=== PATIENT | female | born 1985 | race Hispanic/Latino ===

== ENCOUNTER 2018-03-01 05:22 | Emergency (ER) | payer BC ==
[2018-03-01 05:39] VITALS: BP 118/65; PULSE 76; RESP 18; TEMP 97.8; O2SAT 99
--- NOTE | 2018-03-01 05:44 | ED PDOC ---
HPI: Abdomen Chief Complaint (Provider): abdominal pain with vaginal bleeding. History Per: Patient History/Exam Limitations: no limitations Location Of Pain/Discomfort: Suprapubic Abnormal Vaginal Bleeding: Yes Last Menstral Period: 12/13/17 <Elsie Tejada - Last Filed: 03/01/18 05:49> <Halie Florez - Last Filed: 03/02/18 01:18> Chief Complaint (Nursing): Abdominal Pain Additional Complaint(s): 32 year old female with no PMH here with complaints of severe abdominal pain for past day, with vaginal bleeding. Pain was 10/10 late last night, she took a duexis with improvement of pain, now a 3/10. She reports vaginal bleeding like menses. Currently having bleeding. Nausea yesterday, no vomiting, not currently nauseous. Reports LMP of 12/13/17, last had u/s done 3 days ago at [facility]. She has appt with [facility] this upcoming . No fevers, chest pain, dypnea, vomiting, pedal edema. No PMD. (Elsie Tejada) Supervising Attending Note <Elsie Tejada - Last Filed: 03/01/18 05:49> - Supervising Attending Note The Documented history was done by the: Physician Egg Setter The documented physical exam was done by the: Physician Egg Setter The documented procedures were done by the: Physician Egg Setter - Attestation: I have personally seen and examined this patient.: Yes I have fully participated in the care of the patient.: Yes I have reviewed all pertinent clinical information: Yes <Halie Florez - Last Filed: 03/02/18 01:18> - Notes: Notes:: pt seen by myself. signout to dr balbuena pending workup (Halie Florez) Past Medical History - Medical History PMH: No Chronic Diseases - Surgical History Surgical History: No Surg Hx - Family History Family History: States: No Known Family Hx, Unknown Family Hx - Living Arrangements Living Arrangements: With Family - Social History Current smoker - smoking cessation education provided: No Drugs: Denies <Elsie Tejada - Last Filed: 03/01/18 05:49> <Halie Florez - Last Filed: 03/02/18 01:18> Vital Signs: Last Vital Signs Temp 97.8 F 03/01/18 05:34 Pulse 76 03/01/18 05:34 Resp 18 03/01/18 05:34 BP 118/65 03/01/18 05:34 Pulse Ox 99 03/01/18 10:30 - Allergies Allergies/Adverse Reactions: Allergies Allergy/AdvReac Type Severity Reaction Status Date / Time No Known Allergies Allergy Verified 03/01/18 05:34 Review of Systems Constitutional: Negative for: Fever, Chills, Sweats, Weakness Eyes: Negative for: Pain, Vision Change ENT: Negative for: Ear Discharge, Nose Discharge Cardiovascular: Negative for: Chest Pain, Palpitations, Orthopnea Respiratory: Negative for: Cough, Shortness of Breath, SOB with Exertion, Pleuritic Pain Gastrointestinal: Negative for: Nausea, Vomiting Genitourinary Female: Positive for: Vaginal Bleeding, Pelvic Pain. Negative for : Dysuria, Frequency Skin: Negative for: Rash Neurological: Negative for: Weakness, Numbness Psych: Negative for: Anxiety, Depression <Elsie Tejada - Last Filed: 03/01/18 05:49> Physical Exam - Reviewed Vital Signs Reviewed: Yes - Physical Exam Appears: Positive for: Uncomfortable Head Exam: Positive for: ATRAUMATIC, NORMAL INSPECTION, NORMOCEPHALIC Skin: Positive for: Normal Color, Warm, DRY Eye Exam: Positive for: EOMI, Normal appearance, PERRL ENT: Positive for: Normal ENT Inspection Neck: Positive for: Normal, Painless ROM Cardiovascular/Chest: Positive for: Regular Rate, Rhythm. Negative for: Murmur , Bradycardia, Tachycardia Pelvic Exam: Positive for: Active Bleeding, Blood (pooling in vaginal vault, no POC visualized, no blood clots) Back: Negative for: L CVA Tenderness, R CVA Tenderness Rectal: Positive for: Deferred Extremity: Positive for: Normal ROM. 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 Florez (Elsie Tejada) Medical Decision Making <Elsie Tejada - Last Filed: 03/01/18 05:49> <Halie Florez - Last Filed: 03/02/18 01:18> Medical Decision Making: Patient was seen by myself along with the resident. Patient supposedly 10 weeks , but notes that on last visit no IUP was seen. States that she experienced extreme cramping with some bleeding last night. Initial impression: r/o spontaneous v threatened Initial plan: * US * Labs Scribe Attestation: Documented by Aliya Olvera acting as a scribe for Halie Florez MD. Scribe Attestation: All medical record entries made by the Scribe were at my direction and personally dictated by me. I have reviewed the chart and agree that the record accurately reflects my personal performance of the history, physical exam, medical decision making, and the department course for this patient. I have also personally directed, reviewed, and agree with the discharge instructions and disposition. (Halie Florez) Disposition - Disposition Disposition Time: 06:33 <Elsie Tejada - Last Filed: 03/01/18 05:49> <Halie Florez - Last Filed: 03/02/18 01:18> - Clinical Impression Clinical Impression: Threatened - Disposition Condition: STABLE Additional Instructions: RETURN TO ED IN 48 HOURS FOR REPEAT BETA HCG. TAKE TYLENOL NEEDED FOR PAIN. Instructions: Threatened Miscarriage, Bleeding With Forms: [employer] (Telugu)
[2018-03-01 06:36] LABS: BASO % 0.5 % (0.0-2.0); EOS # 0.1 K/uL (0.0-0.7); EOS % 0.9 % (0.0-4.0); HEMOGLOBIN 12.5 g/dL (12.0-16.0); LYMPH # 1.3 K/uL (1.0-4.3); LYMPH % 14.8 % (20.0-40.0); MEAN CELL VOLUME 90.9 fl (81.0-99.0); MEAN CORPUSCULAR HEMOGLOBIN 31.1 pg (27.0-31.0); MEAN CORPUSCULAR HGB CONC 34.3 g/dL (33.0-37.0); MEAN PLATELET VOLUME 8.8 fl (7.2-11.7); MONO # 0.5 K/uL (0.0-0.8); MONO % 6.3 % (0.0-10.0); NEUT # 6.6 K/uL (1.8-7.0); NEUT % 77.5 % (50.0-75.0); RBC 4.01 Mil/uL (3.80-5.20); RED CELL DISTRIBUTION WIDTH 12.6 % (11.5-14.5); WHITE BLOOD COUNT 8.5 K/uL (4.8-10.8)
[2018-03-01 06:44] LABS: ALB/GLOB RATIO 1.4 (1.0-2.1); ALT/SGPT 29 U/L (9-52); AST/SGOT 16 U/L (14-36); BLOOD UREA NITROGEN 13 mg/dl (7-17); CALCIUM 9.1 mg/dL (8.4-10.2); GFR AFRICAN-AMERICAN > 60; GFR NON-AFRICAN AMERICAN > 60
--- NOTE | 2018-03-01 07:24 | ED PDOC ---
- Laboratory Results Result Diagrams: 03/01/18 06:20 03/01/18 06:20 - ECG O2 Sat by Pulse Oximetry: 99 Medical Decision Making Medical Decision Makin:00 -Patient was endorsed to me by Dr. Florez, pending labs and ultrasound. 10:20 -Patient reevaluated. Abdomen non-tender. Patient states she has an appointment with OB this Thursday. -Findings discussed with patient and advised to come to the ED for a repeat beta in x2 days. 09:18 Abdomen/Pelvis/Transvag Ultrasound FINDINGS: Uterus is anteverted measuring 11.3 x 6.4 x 4.5 cm without defined intrauterine gestation. The endometrial pattern is moderately inhomogeneous which transvaginal endometrial thickness of 8.9 mm. Trace fluid is questioned in the endometrial cavity transvaginally. This is not seen on the trans abdominal images. Initially, fluid was suspected at the endocervical cavity, however, following voiding, this was not identified on transvaginal technique and it may have been evacuated. No fluid collections appreciate throughout the examination and the bilateral ovaries appear unremarkable measuring 4.4 x 3.4 x 2.8 cm in the right and 3.1 x 4.2 x 2.2 cm at the left. No ectopic gestation is clearly demonstrated. This is not exclude potential for ectopic gestation nevertheless. IMPRESSION: 1. No intrauterine gestation is appreciated nor definite ectopic. Consider failure of gestation, early intrauterine gestation nonvisualized, or potential ectopic gestation. Clinical correlation is advised. Follow-up ultrasound is advised in 1 week. 2. Normal thickness endometrium with trace fluid question in the endometrial cavity. Overall endometrial appearance is mildly inhomogeneous. Disposition - Clinical Impression Clinical Impression: Threatened - POA Present On Arrival: None - Disposition Disposition: Routine/Home Disposition Time: 10:18 Condition: STABLE Additional Instructions: RETURN TO ED IN 48 HOURS FOR REPEAT BETA HCG. TAKE TYLENOL NEEDED FOR PAIN. Instructions: Threatened Miscarriage, Bleeding With Forms: [employer] (Estonian)
--- NOTE | 2018-03-01 09:26 | US ---
PROCEDURE: OBSTETRIC ULTRASONOGRAPHY HISTORY: abd pain, ; last menstrual period 12/13/2017 suggests 11 week 1 day gestational age. COMPARISON: NONE AVAILABLE TECHNIQUE: Transabdominal and transvaginal pelvic ultrasound was performed with longitudinal and transverse images submitted for interpretation. FINDINGS: Uterus is anteverted measuring 11.3 x 6.4 x 4.5 cm without defined intrauterine gestation. The endometrial pattern is moderately inhomogeneous which transvaginal endometrial thickness of 8.9 mm. Trace fluid is questioned in the endometrial cavity transvaginally. This is not seen on the trans abdominal images. Initially, fluid was suspected at the endocervical cavity, however, following voiding, this was not identified on transvaginal technique and it may have been evacuated. No fluid collections appreciate throughout the examination and the bilateral ovaries appear unremarkable measuring 4.4 x 3.4 x 2.8 cm in the right and 3.1 x 4.2 x 2.2 cm at the left. No ectopic gestation is clearly demonstrated. This is not exclude potential for ectopic gestation nevertheless. IMPRESSION: 1. No intrauterine gestation is appreciated nor definite ectopic. Consider failure of gestation, early intrauterine gestation nonvisualized, or potential ectopic gestation. Clinical correlation is advised. Follow-up ultrasound is advised in 1 week. 2. Normal thickness endometrium with trace fluid question in the endometrial cavity. Overall endometrial appearance is mildly inhomogeneous.
== END 2018-03-01 10:18 | disposition home or self-care (01) ==
LOC: H.ER 05:22
DX: O20.0 Threatened abortion (principal); Z3A.11 11 weeks gestation of pregnancy